=== PATIENT | male | born 1945 | race American Indian/Alaskan Native ===

== ENCOUNTER 2019-06-10 09:53 | Emergency (ER) | payer OTHER ==
[~2019-06-10] VITALS: Ht 172.7 cm; Wt 81.6 kg
[2019-06-10] MEDS ORDERED: MAGNESIUM400 MG PO (10:35)
[2019-06-10] MEDS ORDERED: METFORMIN HCL1000 MG PO (10:40)
[2019-06-10] MEDS ORDERED: ZOCOR40 MG PO (10:40)
[2019-06-10] MEDS ORDERED: VALSARTAN160 MG PO (10:40)
== END 2019-06-10 14:38 | disposition home or self-care (01) ==
LOC: ER 09:53
DX: K64.8 Other hemorrhoids (principal)

== ENCOUNTER 2020-06-16 08:52 | Emergency (ER) | payer OTHER ==
[~2020-06-16] VITALS: Ht 170.2 cm; Wt 81.6 kg
[~2020-06-16 08:52] MED LIST: MAGNESIUM400 MG PO; METFORMIN HCL1000 MG PO; VALSARTAN160 MG PO; ZOCOR40 MG PO
== END 2020-06-16 12:31 | disposition home or self-care (01) ==
LOC: ER 08:52 → CPU-OBS 09:01 → ER 12:31
DX: R07.89 Other chest pain (principal); I16.0 Hypertensive urgency; I10 Essential (primary) hypertension